=== PATIENT | female | born 1955 | race Caucasian/White ===

== ENCOUNTER 2017-04-13 11:00 | Day surgery (SDC) | payer OTHER ==
[~2017-04-13] VITALS: Ht 172.7 cm; Wt 72.1 kg
[~2017-04-13 11:00] MED LIST: ASPI-973 PO; CALC200T6 PO; CHOL5000 PO; DOXY100T56 PO; GLIM4TAB2 PO; INSU100I13 SUBQ; METF-778 PO; PIOG45TA18 PO; SIMV40TA5 PO
[2017-04-13 11:20] VITALS: BP 130/73; PULSE 81; RESP 16; O2SAT 99
--- NOTE | 2017-04-13 15:50 | PCM.PROC ---
Procedure Note Date of Service: Apr 13, 2017 Pre Procedure Diagnosis: L3-L4 interlaminar epidural steroid injection canceled secondary to fingerstick [id number]. Follow-up with PCP Homar Martinez MD * Pain Management * Anesthesiology Homar Martinez MD Apr 13, 2017 15:50
== END 2017-04-13 23:59 | disposition home or self-care (01) ==
LOC: END 11:00
PROVIDERS: ATTEND Anesthesiology Pain Medicine
DX: M54.16 Radiculopathy, lumbar region (principal); Z53.8 Procedure and treatment not carried out for other reasons